=== PATIENT | male | born 1945 ===

== ENCOUNTER 2021-09-09 14:35 | Outpatient (RCR) | payer MEDICARE, OTHER, SELFPAY | END 2021-09-26 23:59 | disposition home or self-care (01) | LOC: CR 14:35 | PROVIDERS: PCP Family Medicine; Visit Provider Family Medicine | DX: Z51.89 Encounter for other specified aftercare (principal); Z95.1 Presence of aortocoronary bypass graft | CPT/HCPCS: S9472 ==

== ENCOUNTER 2021-10-25 10:00 | Outpatient (RCR) | payer MEDICARE, OTHER, SELFPAY | END 2021-10-26 23:59 | disposition home or self-care (01) | LOC: CR 10:00 | PROVIDERS: PCP Family Medicine; Visit Provider Family Medicine | DX: Z51.89 Encounter for other specified aftercare (principal); Z95.1 Presence of aortocoronary bypass graft | CPT/HCPCS: S9472 ==

== ENCOUNTER 2021-11-24 10:00 | Outpatient (RCR) | payer MEDICARE, OTHER, SELFPAY | END 2021-11-26 23:59 | disposition home or self-care (01) | LOC: CR 10:00 | PROVIDERS: PCP Family Medicine; Visit Provider Family Medicine | DX: Z51.89 Encounter for other specified aftercare (principal); Z95.1 Presence of aortocoronary bypass graft | CPT/HCPCS: S9472 ==

== ENCOUNTER 2021-12-03 10:00 | Outpatient (RCR) | payer MEDICARE, SELFPAY | END 2021-12-23 16:26 | LOC: CR 10:00 | PROVIDERS: PCP Family Medicine; Visit Provider Family Medicine | DX: R69 Illness, unspecified (principal) | CPT/HCPCS: S9472 ==

== ENCOUNTER 2021-12-27 10:00 | Outpatient (RCR) | payer MEDICARE, OTHER, SELFPAY | END 2021-12-27 23:59 | disposition home or self-care (01) | LOC: CR 10:00 | PROVIDERS: PCP Family Medicine; Visit Provider Family Medicine | DX: Z51.89 Encounter for other specified aftercare (principal); Z95.1 Presence of aortocoronary bypass graft | CPT/HCPCS: S9472 ==

== ENCOUNTER 2022-01-12 10:00 | Outpatient (RCR) | payer MEDICARE, OTHER, SELFPAY | END 2022-01-24 23:59 | disposition home or self-care (01) | LOC: CR 10:00 | PROVIDERS: PCP Family Medicine; Visit Provider Family Medicine | DX: Z51.89 Encounter for other specified aftercare (principal); Z95.1 Presence of aortocoronary bypass graft | CPT/HCPCS: S9472 ==